=== PATIENT | female | born 1990 | race Two or more races ===

== ENCOUNTER 2018-07-09 22:43 | Emergency (ER) | payer MEDICAID ==
[~2018-07-09] VITALS: Ht 165.1 cm; Wt 102.1 kg
[2018-07-09 23:01] VITALS: BP 126/65
[2018-07-10] MEDS ORDERED: cefTRIAXone SOD 1,000 MG VL IM ONE (01:15)
[2018-07-10] MEDS ORDERED: TETANUS-DIPTH-ACEL PERTUSSIS 0.5ML SYRG IM ONE (01:15)
== END 2018-07-10 01:22 | disposition home or self-care (01) ==
LOC: ER 22:53
DX: S90.851A Superficial foreign body, right foot, initial encounter (principal); W18.31XA Fall on same level due to stepping on an object, initial encounter; Y93.89 Activity, other specified; Y92.89 Other specified places as the place of occurrence of the external cause; Y99.8 Other external cause status
CPT/HCPCS: 10120; 73630; 90471; 90715; 99284; J0696